=== PATIENT | male | born 2000 | race Hispanic/Latino ===

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

== ENCOUNTER → 2018-04-10 | Day surgery (SDC) | payer OTHER ==
[~2018-04-10] VITALS: Ht 172.7 cm; Wt 97.5 kg
[~2018-04-10] MED LIST: HUMALOG100 UNIT/2 SC
--- NOTE | 2018-04-10 07:06 | History & Physical Pre-Op ---
General Information and HPI History of Present Illness: Tony is a 17-year-old male with a long-standing and recurrent history of painful ingrown nails to the left first toe. The patient has undergone multiple in office procedures with multiple recurrences, several which required courses of by mouth antibiotics. The patient presents today with his mother for preoperative surgical consultation. Allergies/Medications Allergies: Coded Allergies: No Known Allergies (04/06/18) Home Med list Insulin Lispro (Humalog) 100 UNIT/ML VIAL INSULIN PUMP VIA OMNI POD (Reported) Past History Medical History Endocrine: diabetes Surgical History Pertinent Surgical History: non-contributory Review of Systems Review of Systems: Unremarkable except for that noted in history present illness Exam & Diagnostic Data Physical Exam: Lungs clear bilaterally. Heart sounds rate and rhythm regular. Lower extremity physical exam demonstrates intact pedal pulses bilaterally. Pulses dorsalis pedis and posterior tibial arteries are palpable bilaterally. Patient without any sensory motor deficits. Deep tendon reflexes grossly intact. Patient noted to have onychocryptosis to the left great toe. Assessment/Plan Assessment/Plan: Chronic ingrown nail left great toe. A lengthy discussion reviewing both surgical and conservative options was held the patient at bedside and the patient elected to go forward surgery despite the risks. As Ranked By This Provider Problem List: 1. Ingrowing nail Attending MD Review Statement Attending Statement Attending MD Statement: examined this patient
--- NOTE | 2018-04-10 09:10 | Operative Report ---
Operative/Inv Procedure Report Surgery Date: 04/10/18 Name of Procedure: 1 cold steel procedure left great toe 2 local random advancement flap closure of open surgical wound left Pre-Operative Diagnosis: 1 chronic, onychocryptosis left hallux Post-Operative Diagnosis: The same Estimated Blood Loss: scant Surgeon/Design Analyst: Susana ELDRIDGE,Baltazar Kitchen DPM Anesthesia: moderate sedation, block Operative/Procedure Note Note: After obtaining informed consent the patient was brought to the operating room and placed on the operating table in the supine position. The patient isn't securely fastened to the operating table utilizing safety belt. After administration of IV sedation, 10 mL of 0.5% Marcaine plain was obtained about the patient's left ankle. The left foot and ankle within scrubbed, prepped and draped in usual aseptic manner. A partial, temporary nail avulsion was then performed at the lateral margin of the left great toe. Next, a Hernandez-type matrixectomy was performed at the lateral margin. The periosteum was curetted of any overlying matrix cells. Next, a plantar flap was developed with undermining, mobilization and adjacent of the inferior margin tissues superiorly. The deep side flap was held centrally with 4-0 Vicryl. The skin edges were then reapproximated 4-0 nylon. Incision was dressed with Xeroform, 4 x 4's, Jay and Coban. The patient was noted tolerate both procedure and anesthesia well and the patient was transported from the operating room to recovery with vital signs stable.
== END ==
LOC: STS 02:20
DX: L60.0 Ingrowing nail (principal); E10.9 Type 1 diabetes mellitus without complications; Z79.4 Long term (current) use of insulin; Z96.41 Presence of insulin pump (external) (internal)
CPT/HCPCS: J0131; J0690; J2001; J2250; J3490